=== PATIENT | female | born 1990 | race Two or more races ===

== ENCOUNTER 2024-12-05 00:04 | Observation (INO) | payer MEDICAID, OTHER ==
[~2024-12-05] VITALS: Ht 160 cm; Wt 87.5 kg
--- NOTE | 2024-12-05 07:19 | DVHDS2 ---
Physician Discharge Progress N Final Diagnosis: False labor Operations or Procedures: Operations or Procedures NST Commentary: Commentary Labor check, not in labor previous c/section Condition on Discharge: Stable Disposition: Home Discharge Instructions: Diet: Regular Activity: No Restrictions, As Tolerated Follow Up/Referral: PRN Medications: N/A Follow Up Care: Discharge Statement: "Patient was advised to return to the ER or call 911 if any headaches, dizziness, shortness of breath, chest pain, abdominal pain, bleeding, fevers, or worsening of medical condition. Patient was counseled about treatment plan, medications, possible side effects, patientverbalized understanding. All questions were answered to the best of my ability. This discharge took greater then 30 minutes in planning, reviewing documentation, counseling the patient, and discussing with other team members." CYNTHIA NEWBY DO Dec 05, 2024 07:19
== END 2024-12-05 02:38 | disposition home or self-care (01) ==
LOC: EDBD 00:04 → LDRP 00:04
PROVIDERS: ADMIT Obstetrics & Gynecology; ATTEND Obstetrics & Gynecology
DX: O47.9 False labor, unspecified (principal); Z3A.40 40 weeks gestation of pregnancy; Z98.891 History of uterine scar from previous surgery; Z79.899 Other long term (current) drug therapy
CPT/HCPCS: 59025; 81002; 94762; G0378